=== PATIENT | female | born 1955 | race Two or more races ===

== ENCOUNTER 2022-04-05 16:00 | Emergency (ER) | payer MEDICARE, OTHER ==
[~2022-04-05] VITALS: Ht 160 cm; Wt 74.5 kg
[2022-04-05] MEDS ORDERED: ACETAMINOPHEN 500 MG TAB PO ONE (17:00)
[2022-04-05] MEDS ORDERED: ACET-1080 PO (17:56)
[2022-04-05] MEDS ORDERED: AZIT250T8 PO (17:56)
[2022-04-05 18:11] VITALS: BP 128/68
== END 2022-04-05 18:14 | disposition home or self-care (01) ==
LOC: ER 16:00
DX: R51.9 Headache, unspecified (principal); J02.9 Acute pharyngitis, unspecified; I10 Essential (primary) hypertension; E11.9 Type 2 diabetes mellitus without complications; E78.5 Hyperlipidemia, unspecified; Z79.2 Long term (current) use of antibiotics; Z79.899 Other long term (current) drug therapy
CPT/HCPCS: 70450

== ENCOUNTER 2023-06-06 08:54 | Emergency (ER) | payer MEDICARE ==
[~2023-06-06] VITALS: Ht 162.6 cm; Wt 72.8 kg
[~2023-06-06 08:54] MED LIST: ACET-1080 PO; AZIT-81 PO
[2023-06-06 09:10] VITALS: BP 165/62; PULSE 65; RESP 18; TEMP 97.8; O2SAT 98
[2023-06-06] MEDS ORDERED: ACET-1080 PO (10:24)
[2023-06-06] MEDS ORDERED: ACETAMINOPHEN 500 MG TAB PO ONE (10:30)
== END 2023-06-06 10:51 | disposition home or self-care (01) ==
LOC: ER 08:54
DX: S52.502A Unspecified fracture of the lower end of left radius, initial encounter for closed fracture (principal); S76.012A Strain of muscle, fascia and tendon of left hip, initial encounter; S00.83XA Contusion of other part of head, initial encounter; I10 Essential (primary) hypertension; E11.9 Type 2 diabetes mellitus without complications; E78.5 Hyperlipidemia, unspecified; Z79.2 Long term (current) use of antibiotics; Z79.899 Other long term (current) drug therapy; W10.9XXA Fall (on) (from) unspecified stairs and steps, initial encounter; Y93.89 Activity, other specified; Y92.89 Other specified places as the place of occurrence of the external cause; Y99.8 Other external cause status
CPT/HCPCS: 29125; 70450; 73110; 73502

== ENCOUNTER 2025-05-07 16:39 | Emergency (ER) | payer MEDICARE ==
[~2025-05-07] VITALS: Ht 160 cm; Wt 76.8 kg
[~2025-05-07 16:39] MED LIST changes: +ATOR-507 PO; +AZIT-185 PO; -AZIT-81 PO; +LOSA-534 PO; +METF-370 PO; +METO25TA5 PO; +PANT40TA2 PO; +SUCR1TAB31 OR
--- NOTE | 2025-05-07 17:19 | ED.PDOC ---
Musculoskeletal HPI Comments 69y F who presents to the ED left lower extremity pain. Patient presents with daughter who states states patient has a history of varicose veins in the left leg. Patient daughter states that patient in the past had a blood clot develop and got worried and for the same today and came to the ED for further evaluation. Patient in the ED state the pain is 8/10 constant with no associated exacerbating or relieving factors. Patient otherwise denies shortness of breath diaphoresis chest pain or associated symptoms. Patient otherwise denies any other symptoms at this time. Patient was hypertensive at arrival. Chief Complaint: Lower Extremity Time Seen by MD: 17:17 Primary Care Provider: unknown Reviewed Notes: Nurses Notes, Medications, Allergies Allergies: Coded Allergies: NO KNOWN ALLERGIES (Unverified , 01/16/24) Home Meds Active Scripts Sucralfate (CARAFATE) 1 Gm Tab, 1 GM OR QIDACHS for 30 Days, #120 TAB Prov:SOMMER BRICENO NP 08/06/24 Pantoprazole Sodium Sesquihydr (Protonix) 40 Mg Tab, 40 MG PO BID for 30 Days, #60 TAB Prov:SOMMER BRICENO NP 08/06/24 Acetaminophen (Tylenol 8 Hour Arthritis) 650 Mg Tab, 650 MG PO TID, #30 TAB Prov:KAVYA CHAVEZ 06/06/23 Azithromycin (ZITHROMAX TABLET) 250 Mg Tb, 250 MG PO DAILY, #6 TAB Prov:KAVYA CHAVEZ 04/05/22 Reported Medications Metformin Hydrochloride (Metformin Hcl) 500 Mg Tab, 500 MG PO DAILY for 30 Days, MG 08/05/24 Atorvastatin Calcium (Lipitor) 40 Mg Tab, TAB PO DAILY, #30 TAB 5 Refills 08/05/24 Losartan Potassium (Losartan Potassium) 50 Mg Tab, 50 MG PO DAILY for 30 Days, MG 08/05/24 Metoprolol Tartrate (Metoprolol Tartrate) 25 Mg Tab, 25 MG PO for 30 Days, MG 08/05/24 Information Source: Patient, Relative Mode of Arrival: Ambulatory Brought in by: daughter Location: Left Extremity Location: Leg Timing: Days Prehospital treatment: None Severity: Moderate Able to Move Extremity: Yes Bear Weight: Fully Pain: Moderate Hand Dominance: Right Mechanism: Spontaneous Circumstances: Spontaneous Onset of Symptoms: Spontaneous Symptoms: Swelling, Pain DVT Risk Factors: NONE Past Medical History PAST MEDICAL HISTORY: DM, High Lipids, HTN Surgical History: Denies all surgeries [employer] 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 Hx Family History Family History: Reviewed,noncontributory to illness Social History Smoker: Non-Smoker Alcohol: Denies ETOH Use Drugs: Denies Drug Use Lives In: Home Constitutional: denies: chills, diaphoresis, fatigue, fever, malaise, sweats, weakness, others EENTM: denies: blurred vision, double vision, ear bleeding, ear discharge, ear drainage, ear pain, ear ringing, eye pain, eye redness, hearing loss, mouth pain, mouth swelling, nasal discharge, nose bleeding, nose congestion, nose pain, photophobia, tearing, throat pain, throat swelling, voice changes, others Respiratory: denies: cough, hemoptysis, orthopnea, SOB at rest, shortness of breath, SOB with excertion, stridor, wheezing, others Cardiovascular: denies: chest pain, dizzy spells, diaphoresis, Dyspnea on exertion, edema, irregular heart beat, left arm pain, lightheadedness, palpitations, PND, syncope, others Gastrointestinal: denies: abdomen distended, abdominal pain, blood streaked bowels, constipated, diarrhea, dysphagia, difficulty swallowing, hematemesis, melena, nausea, poor appetite, poor fluid intake, rectal bleeding, rectal pain, vomiting, others Genitourinary: denies: abnormal vagina bleeding, burning, dyspareunia, dysuria, flank pain, frequency, hematuria, incontinence, pain, , vagina discharge, urgency, others Neurological: denies: dizziness, fainting, headache, left sided numbness, left sided weakness, numbness, paresthesia, pre-existing deficit, right sided numbness, right sided weakness, seizure, speech problems, tingling, tremors, weakness, others Musculoskeletal: denies: back pain, gout, joint pain, joint swelling, muscle pain, muscle stiffness, neck pain, others Integumetry: reports: others (Left lower leg varicose vein pain); denies: bruises, change in color, change in hair/nails, dryness, laceration, lesions, lumps, rash, wounds Allergic/Immunocompromised: denies: Difficulty Healing, Frequent Infections, Hives, Itching, others Hematologic/Lymphatic: denies: anemia, blood clots, easy bleeding, easy bruising, swollen glands, others Endocrine: denies: excessive hunger, excessive sweating, excessive thirst, excessive urination, flushing, intolerance to cold, intolerance to heat, unexplained weight gain, unexplained weight loss, others Psychiatric: denies: anxiety, bipolar disorder, depression, hopeless, panic disorder, schizophrenia, sleepless, suicidal, others All Other Systems: Reviewed and Negative Physical Exam General Appearance: Mild Distress (Moderate distress due to left lower leg varicose pain), Normal HEENT: Normal ENT Inspection, Pharynx Normal, TMs Normal Neck: Full Range of Motion, Non-Tender, Normal, Normal Inspection Respiratory: Chest Non-Tender, Lungs Clear, No Accessory Muscle Use, No Respiratory Distress, Normal Breath Sounds Cardiovascular: No Edema, No JVD, No Murmur, No Gallop, Normal Peripheral Pulses, Regular Rate/Rhythm Breast Exam: Deferred Gastrointestinal: No Organomegaly, Non Tender, No Pulsatile Mass, Normal Bowel Sounds, Soft Genitalia: Deferred Pelvic: Deferred Rectal: Deferred Extremities: No calf tenderness, Tender Neurologic: Alert Cerebellar Function: NOT DONE Reflexes: NOT DONE Skin: Wounds (Patient displays a mildly angry left lower leg varicose vein. Minimal erythema noted in the site. Exquisitely tender to palpation throughout. Patient does not have any signs of DVT formation.) Lymphatic: No Adenopathy Was a procedure done? Was a procedure done?: No Differential Diagnosis EXT Differential Diagnosis: Other Other Differential Diagnosis Varicose veins, peripheral vascular disease X-Ray, Labs, Meds, VS Vital Signs Date Time Temp Pulse Resp B/P (MAP) Pulse Ox O2 Delivery O2 Flow Rate FiO2 05/07/25 16:59 98.3 68 17 158/108 95 98.3 X-Ray, Labs, Meds, VS Comment Spent time discussing the concerns with the patient and her daughter. This patient unfortunately suffers from extensive varicose veins throughout her bilateral lower extremities. According to the daughter, patient is being seen by vascular specialist to address his concerns. Advised pain medication as needed and continue follow up with the vascular specialist. Time of 1ST Reevaluation: 17:33 Reevaluation 1ST: Unchanged Consultation: PCP, Other (Varicose vein specialist) Patient Education/Counseling: Diagnosis, Treatment Family Education/Counseling: Diagnosis, Treatment Sepsis Recent Procedure: No On Antibiotic Therapy: No Respiratory Rate >20: No Heart Rate >90: No Temp<36 C (96.8 F) or >38.3 C: No SBP <90 or MAP <65 mmHG: No New Acute Mental Status Change: No Is the patient on CPAP, BIPAP,: No IV fluid given: No Departure 1 Departure Time of Disposition: 17:34 Impression: Primary Impression: Varicose vein of leg Disposition: HOME / SELF CARE / HOMELESS Condition: Stable Additional Instructions: Advise utilizing medication as needed for pain relief. Patient needs to continue follow up with her vascular specialist to address her varicose vein concerns. e-Prescriptions Hydrocodone-Acetaminophen (Hydrocodone Bitartrate/AC 5-325 mg) 1 Tab Tab 1 TAB PO Q8HP PRN, #12 TAB Prov: JUAREZ ANTUNEZ PAC 05/07/25 Discharged With: Self, Relative Critical Care Note Critical Care Time?: No Stability Stability form required: No Heart Score Heart Score: Heart Score Response (Comments) Value History N/A 0 EKG N/A 0 Age N/A 0 Risk Factors N/A 0 Troponin N/A 0 Total 0 I personally scribed for JUAREZ ANTUNEZ PAC ([email or web address]) on 05/07/25 at 17:19. Electronically submitted by Judy Warren ([email or web address]). JUAREZ ANTUNEZ PAC May 07, 2025 17:19
[2025-05-07] MEDS ORDERED: HYDR-4902 PO (17:36)
[2025-05-07 17:39] VITALS: BP 158/66; PULSE 63; RESP 18; TEMP 97.9; O2SAT 96
== END 2025-05-07 17:48 | disposition home or self-care (01) ==
LOC: ER 16:44
DX: I83.90 Asymptomatic varicose veins of unspecified lower extremity (principal); I10 Essential (primary) hypertension; E11.9 Type 2 diabetes mellitus without complications; E78.5 Hyperlipidemia, unspecified; Z79.899 Other long term (current) drug therapy; Z79.84 Long term (current) use of oral hypoglycemic drugs